=== PATIENT | male | born 1980 | race Caucasian/White ===

== ENCOUNTER 2018-12-06 05:34 | Inpatient (IN) | payer SELFPAY ==
[~2018-12-06] VITALS: Ht 175.3 cm; Wt 78.5 kg
[2018-12-06 05:35] VITALS: BP 130/76
--- NOTE | 2018-12-06 05:40 | NUR ---
PT BIB FAMILY C/O ABD PAIN. PT STATES SUDDEN ONSENT OF RLQ PAIN SINCE LAST NIGHT; PT STATES 10/10 SHARP PAIN W/NAUSEA, VOMITING. PT DENIES TRAUMA OR INJURY. +TENDERNESS TO SITE. PT ACTING APPROPRIATLY, SPEAKING IN CLEAR COMPLETE SENTENCES. PT IN GOWN, IN BED; SAFETY PRECAUTIONS IN PLACE. PENDING ER MD BRIGGS. PMH: DENIES
--- NOTE | 2018-12-06 05:41 | NUR ---
AMBULATED TO ER BED 8
[2018-12-06] MEDS ORDERED: NACL 0.9% 1,000 ML IV ONE (05:56)
[2018-12-06] MEDS ORDERED: ONDANSETRON 4 MG/2 ML VIAL IVP ONE (06:00)
[2018-12-06] MEDS ORDERED: MORPHINE SULFATE 4 MG/ML SYR IVP ONE (06:00)
[2018-12-06 06:22] LABS: BASOPHILS % (AUTO) 0.4 % (0.0-2.0); EOSINOPHILS # (AUTO) 0.1 K/uL (0-0.4); EOSINOPHILS % (AUTO) 1.3 % (0.0-4.0); HEMATOCRIT 48.3 % (36-52); HEMOGLOBIN 16.4 g/dL (12.0-18.0); LYMPHOCYTES % (AUTO) 8.9 % (20.5-51.1); MEAN CORPUSCULAR HEMOGLOBIN 29 pg (27-31); MEAN CORPUSCULAR HGB CONC 34 g/dL (33-37); MEAN CORPUSCULAR VOLUME 85.9 fL (80-94); MONOCYTES # (AUTO) 0.7 K/uL (0.8-1.0); MONOCYTES % (AUTO) 6.1 % (1.7-9.3); NEUTROPHILS # (AUTO) 9.4 K/uL (1.8-7.7); NEUTROPHILS % (AUTO) 83.3 % (42.2-75.2); PLATELET COUNT (AUTO) 181 K/uL (140-450); RED BLOOD CELL COUNT(AUTO) 5.63 MIL/uL (4.20-6.10); RED CELL DISTRIBUTION WIDTH 13.3 % (11.6-13.7); WHITE BLOOD COUNT (AUTO) 11.3 K/uL (4.8-10.8)
[2018-12-06 06:37] LABS: ANION GAP 10.7 (8-16); CARBON DIOXIDE 34.7 mmol/L (21-32); POTASSIUM 3.4 mmol/L (3.5-5.1)
[2018-12-06 06:38] LABS: CREATININE 0.9 mg/dL (0.7-1.3)
[2018-12-06 06:51] LABS: TOTAL BILIRUBIN 1.3 mg/dL (0.0-1.0)
[2018-12-06 06:55] LABS: ALBUMIN 4.3 g/dL (3.4-5.0)
--- NOTE | 2018-12-06 07:11 | NUR ---
Pt report given to ELEAZAR Caruso. VSS; pt acting appropriatly. Transfer of care at this time.
--- NOTE | 2018-12-06 07:12 | NUR ---
PT IS AAO X4. FULL CLEAR SPEECH. NO SIGNS AND SYMPTOMS OF DISTRESS NOTED. ACTING APPROPRIATELY.
[2018-12-06] MEDS: NACL 0.9% 1,000 ML IV SCH ×2 (07:15→17:15)
[2018-12-06] MEDS ORDERED: ACETAMINOPHEN 325 MG TAB PO PRN (07:15)
[2018-12-06] MEDS ORDERED: DOCUSATE SODIUM 100 MG GELCAP PO PRN (07:15)
[2018-12-06] MEDS ORDERED: LORazepam 2 MG/ML VIAL IM/IVP PRN (07:15)
[2018-12-06] MEDS ORDERED: HYDROcodone/APAP 5/325 MG 1 TAB TAB PO PRN (07:15)
[2018-12-06] MEDS ORDERED: ONDANSETRON 4 MG/2 ML VIAL IM/IVP PRN (07:15)
[2018-12-06] MEDS ORDERED: MORPHINE SULFATE 2 MG/ML SYR IVP PRN (07:15)
[2018-12-06] MEDS ORDERED: ZOLPIDEM 5 MG TAB PO PRN (07:15)
[2018-12-06] MEDS ORDERED: LIDOCAINE VISCOUS 2% 20 ML UDC ONE (07:54)
--- NOTE | 2018-12-06 07:56 | NUR ---
NG-TUBE INSERTED ORDERED. AIR BOLUS HEARD UPON AUSCULTATION, VERIFIED BY TWO NURSES. PT TOLERATED PROCEDURE WELL. WILL ORDER X-RAY FOR NG-TUBE PLACEMENT.
[2018-12-06] MEDS ORDERED: LIDOCAINE VISCOUS 2% 20 ML UDC NG SCH (08:00)
--- NOTE | 2018-12-06 08:01 | NUR ---
RADIOLOGY AWARE OF CHEST-XRAY ORDER TO VERIFY NG-TUBE PLACEMENT.
[2018-12-06 08:05] LABS: PROTHROMBIN TIME 10.1 secs (10.8-13.4)
--- NOTE | 2018-12-06 08:05 | NUR ---
URINE SAMPLE OBTAINED, TO BE SENT TO LAB.
--- NOTE | 2018-12-06 08:11 | NUR ---
RADIOLOGY AT BEDSIDE TO VERIFY NG-TUBE PLACEMENT
--- NOTE | 2018-12-06 08:20 | NUR ---
PT ARRIVED ON UNIT VIA GURNEY. PT IS STABLE AND IN NO APPARENT DISTRESS. VITALS TAKEN. IV FLUIDS STARTED AT 100ML/HR PER DR ORDER. IV SITE IS PATENT AND SHOWS NO SIGNS OF INFILTRATION OR INFLAMMATION. WILL CONTINUE TO MONITOR.
--- NOTE | 2018-12-06 08:20 | NUR ---
Patient will be admitted to care of Dr Rod. Admitted to TELE. Will go to room 106 B. Belongings list completed. Report to ELEAZAR Guevara.
[2018-12-06 09:09] LABS: APPEARANCE,URINE HAZY (CLEAR); BILIRUBIN,URINE NEGATIVE (NEGATIVE); BLOOD, URINE NEGATIVE (NEGATIVE); COLOR,URINE YELLOW (YELLOW); LEUKOCYTE ESTERASE ,URINE NEGATIVE (NEGATIVE); NITRITE, URINE NEGATIVE (NEGATIVE); PH,URINE 8.5 (5.0-9.0); UGLUCOSE NEGATIVE (NEGATIVE)
[2018-12-06 09:29] LABS: MAGNESIUM 1.9 mg/dL (1.8-2.4); PHOSPHORUS 2.8 mg/dL (2.5-4.9)
[2018-12-06 09:30] LABS: FREE T4 (FREE THYROXINE) 1.08 ng/dL (0.76-1.46); THYROID STIMULATING HORMONE 0.8 uIU/mL (0.34-3.74)
--- NOTE | 2018-12-06 10:05 | NUR ---
PT IS RESTING QUIETLY IN BED, PT IS STABLE WITH NO SIGNS OF DISTRESS. ALL SAFETY MEASURES ARE IN PLACE. WILL CONTINUE TO MONITOR.
[2018-12-06 10:35] LABS: BARBITURATE, URINE NEGATIVE ng/ml (NEG <=200); BENZODIAZEPINE, URINE NEGATIVE ng/mL (NEG <=200); CANNABINOID, URINE NEGATIVE ng/mL (NEG <=50); COCAINE, URINE NEGATIVE ng/mL (NEG <=300); OPIATE, URINE POSITIVE ng/mL (NEG <=2000); PHENCYCLIDINE SCREEN,URINE NEGATIVE ng/mL (NEG <=25)
[2018-12-06 11:48] LABS: CHOL/HDL RATIO 5.8 (1-4.5)
[2018-12-06] MEDS ORDERED: LEVOFLOXACIN 750 MG/D5W PREMIX 150 ML IV SCH (12:00)
--- NOTE | 2018-12-06 12:10 | NUR ---
FREQUENT ROUNDING ON PT. PT IS STABLE AND IN NO APPARENT DISTRESS. ALL SAFETY MEASURES ARE IN PLACE WILL CONTINUE TO MONITOR.
--- NOTE | 2018-12-06 13:29 | NUR ---
PUSHED CONTRAST THROUGH NG TUBE FOR SMALL BOWEL FOLLOW THROUGH. WITH XRAY TECHS AT BEDSIDE.
--- NOTE | 2018-12-06 13:30 | NUR ---
[facility] GOT ME PT COMPLAINED OF SUDDEN DIAPHORESIS AND LIGHTHEADNESS. CAME TO BED SIDE PT HAD NOTABLE DIAPHORESIS AND BODY RIGIDITY. PTS EYES OPEN BUT UNRESPONSIVE. CALLED [facility] RESPONSE FOR HELP. PT HEART RATE IN LOW 40'S, BUCKRAM SEWER MAMI CAME. VITALS TAKEN 138/74 SPO2 97 HEART RATE 64. PT STILL DIAPHORETIC. PT BEGAN TO STABLIZE WITH NO COMPLAINTS OF PAIN. DR. KHAN AT BEDSIDE. PT STARTED BEGINNING TO RESPOND. DR. VENCES CAME TO PT BEDSIDE WELL. BY THAN THE PT WAS STABLE, RESPONSIVE AND BLOOD PRESSURE WAS 112/ 76 SPO2 97 HEART RATE 68. Addendum: 12/06/18 at 1408 by Paola More RN BLOOD SUGAR WAS TAKEN AND FINGER STICK GLUCOSE WAS 116
--- NOTE | 2018-12-06 13:53 | NUR ---
REVIEWED PTS TELEMONITOR. THERE WAS ABOUT A 7 SECOND ASYSTOLE. BEFORE PT RETURNED TO SINUS RHYTHM.
--- NOTE | 2018-12-06 13:58 | NUR ---
DR. VENCES AWARE OF EKG STRIP FROM [facility]ON[facility] CALL. HE HAS REVIEWED THE STRIP AND WE WILL CONTINUE TO MONITOR THE PT ON TELE.
--- NOTE | 2018-12-06 14:00 | NUR ---
FREQUENT MONITORING ON PT. PT IS STABLE AND AWAKE WITH NO SIGNS OF DISTRESS, ALL SAFETY MEASURES ARE IN PLACE. WILL CONTINUE TO MONITOR.
[2018-12-06] MEDS: metroNIDAZOLE 500 MG/NS PREMIX 100 ML IV SCH ×2 (14:31→20:45)
--- NOTE | 2018-12-06 15:31 | NUR ---
PATIENT HAS BEEN SCREENED AND CATEGORIZED MODERATE NUTRITION RISK. PATIENT WILL BE SEEN WITHIN 3-5 DAYS OF ADMISSION. 12/08/18PRADIP VAZQUEZ RD
[2018-12-06 16:00] VITALS: BP 113/65
--- NOTE | 2018-12-06 16:00 | NUR ---
FAMILY AT PATIENTS BEDSIDE, PT IS AWAKE IN BED PT IS STABLE AND IN NO APPARENT DISTRESS, ALL SAFETY MEASURES ARE IN PLACE. WILL CONTINUE TO MONITOR.
--- NOTE | 2018-12-06 18:05 | NUR ---
FREQUENT ROUNDING ON PT PT IS STABLE AND IN NO APPARENT DISTRESS. ALL SAFETY MEASURES ARE IN PLACE. VITAL SIGNS ARE GOOD, PT IS SINUS RHYTHM ON TELE MONITOR. WILL CONTINUE TO MONITOR.
--- NOTE | 2018-12-06 19:30 | NUR ---
RECEIVED REPORT FROM DAY SHIFT NURSE. PT LYING IN BED. AAOX4. NO C/O PAIN. NO RESP DISTRESS NOTED. ON ROOM AIR. NO C/O NAUSEA OR VOMITING. PT HAS NGT TO RIGHT NARE. IV TO LEFT AC #18G, NS AT 100 ML/HR INFUSING WELL. SAFETY PRECAUTION IN PLACE. CALL LIGHT WITHIN REACH.
--- NOTE | 2018-12-06 19:31 | NUR ---
HAND OFF REPORT GIVEN TO SYSTEMS SPEC NURSE, PT IS AWAKE IN BED, PT IS STABLE AND SHOWS NO SIGNS OF DISTRESS. ALL SAFETY MEASURES ARE IN PLACE.
[2018-12-06 20:00] VITALS: BP 130/76
--- NOTE | 2018-12-06 21:40 | NUR ---
DR. ROSA MADE AWARE OF SMALL BOWEL FOLLOW THROUGH RESULT AND PT'S NGT NOT CONNECTED TO SUCTION. PER MD, NO NEED TO CONNECT TO SUCTION.
--- NOTE | 2018-12-06 21:58 | NUR ---
POTASSIUM LEVEL THIS MORNING 3.4. DR. ROSA MADE AWARE.
--- NOTE | 2018-12-06 22:10 | NUR ---
DISCONTINUED NGT. PT TOLERATED PROCEDURE WELL.DENIES PAIN. NO NAUSEA/VOMITING.
[2018-12-06] MEDS ORDERED: POTASSIUM CHLORIDE 10 MEQ TABER PO SCH (22:30)
[2018-12-07] VITALS: BP 103/55
--- NOTE | 2018-12-07 | NUR ---
V/S CHECKED, WNL. DENIES PAIN. NO RESP DISTRESS NOTED. NEEDS MET AT THIS TIME.
--- NOTE | 2018-12-07 02:40 | NUR ---
PT SLEEPING BUT EASILY AROUSABLE. NO S/S OF PAIN OR DISCOMFORT. RESP EVEN AND UNLABORED. IVF INFUSING WELL.
[2018-12-07] MEDS: NACL 0.9% 1,000 ML IV SCH (02:48)
[2018-12-07 04:00] VITALS: BP 101/54
[2018-12-07] MEDS: metroNIDAZOLE 500 MG/NS PREMIX 100 ML IV SCH (04:45)
--- NOTE | 2018-12-07 05:00 | NUR ---
PT SLEEPING. NO S/S OF RESP DISTRESS NOTED. NO S/S PAIN.
--- NOTE | 2018-12-07 07:15 | NUR ---
ENDORSED PT TO DAY SHIFT NURSE. PT IN STABLE CONDITION.
--- NOTE | 2018-12-07 07:20 | NUR ---
RECEIVED HAND OFF REPORT FROM BUNDLER NURSE PT IS AWAKE AND IN STABLE CONDITION ALL SAFETY MEASURES ARE IN PLACE. WILL CONTINUE TO MONITOR.
[2018-12-07 08:00] VITALS: BP 115/73
--- NOTE | 2018-12-07 08:00 | NUR ---
PT IS STABLE IN BED ALL SAFETY MEASURES ARE IN PLACE PT SHOWS NO SIGNS OF DISTRESS. WILL CONTINUE TO MONITOR,
[2018-12-07 08:02] LABS: BASOPHILS % (AUTO) 0.7 % (0.0-2.0); EOSINOPHILS # (AUTO) 0.1 K/uL (0-0.4); EOSINOPHILS % (AUTO) 2.3 % (0.0-4.0); HEMATOCRIT 43.6 % (36-52); HEMOGLOBIN 14.7 g/dL (12.0-18.0); LYMPHOCYTES # (AUTO) 1.7 K/uL (2.0-11.5); LYMPHOCYTES % (AUTO) 27.5 % (20.5-51.1); MEAN CORPUSCULAR HEMOGLOBIN 30 pg (27-31); MEAN CORPUSCULAR HGB CONC 34 g/dL (33-37); MONOCYTES # (AUTO) 0.5 K/uL (0.8-1.0); MONOCYTES % (AUTO) 7.7 % (1.7-9.3); NEUTROPHILS # (AUTO) 3.9 K/uL (1.8-7.7); NEUTROPHILS % (AUTO) 61.8 % (42.2-75.2); PLATELET COUNT (AUTO) 156 K/uL (140-450); RED BLOOD CELL COUNT(AUTO) 4.95 MIL/uL (4.20-6.10); RED CELL DISTRIBUTION WIDTH 13.2 % (11.6-13.7); WHITE BLOOD COUNT (AUTO) 6.4 K/uL (4.8-10.8)
[2018-12-07 08:28] LABS: CARBON DIOXIDE 28.4 mmol/L (21-32); CREATININE 0.8 mg/dL (0.7-1.3); POTASSIUM 4.4 mmol/L (3.5-5.1)
[2018-12-07 08:39] LABS: MAGNESIUM 1.9 mg/dL (1.8-2.4); PHOSPHORUS 2.3 mg/dL (2.5-4.9)
[2018-12-07] MEDS ORDERED: LACTOBACILLUS RHAMNOSUS GG 1 EACH CAP PO SCH (09:00)
--- NOTE | 2018-12-07 09:00 | NUR ---
FREQUENT ROUNDING PT IS AWAKE IN BED. PT IS STABLE AND IN NO APPARENT DISTRESS ALL SAFETY MEASURES ARE IN PLACE. WILL CONTINUE TO MONITOR.
[2018-12-07] MEDS ORDERED: DOCU-299 PO (09:59)
[2018-12-07 11:00] VITALS: BP 115/73
--- NOTE | 2018-12-07 11:30 | NUR ---
USED [employer] GOVERNMENT PROGRAM MANAGER TO GO OVER DISCHARGE INSTRUCTIONS, EDUCATED PT ON HIGH FIBER DIET. EDUCATED PT ON SIGNS AND SYMPTOMS AND EMERGENCY SERVICES AND COMMUNITY RESOURCES. INFORMED PT OF FOLLOW UP APPOINTMENT THAT WAS SCHEDULED FOR HIM ON November AT 2:30 PM AT [facility] [phone]. INFORMED PATIENT ABOUT THE PRESCRIPTION OF COLACE THAT IS AVAILABLE AT [facility] [address] [place]. REMOVED IV CATH. IV TIP INTACT. ID BAND REMOVED. PT SIGNED ALL FORMS AND HAD NO QUESTIONS. PT IS STABLE AND APPEARS IN NO DISTRESS. Addendum: 12/07/18 at 1325 by Paola More RN PT AMBULATED OUT WITH .
== END 2018-12-07 12:30 | disposition home or self-care (01) | DRG 390 ==
LOC: MED 05:34 → MTU 07:15
PROVIDERS: ADMIT General Practice; ATTEND General Practice
PROC: 0D9670Z Drainage of Stomach with Drainage Device, Via Natural or Artificial Opening (ICD-10-PCS; principal; 2018-12-06)
DX: K56.609 Unspecified intestinal obstruction, unspecified as to partial versus complete obstruction (principal); E78.5 Hyperlipidemia, unspecified; K52.9 Noninfective gastroenteritis and colitis, unspecified
CPT/HCPCS: 36415; 43760; 71045; 74250; 80048; 80053; 80305; 81003; 82150; 82948; 83036; 83690; 83735; 83880; 84100; 84439; 84443; 84484; 85025; 85610; 85730; 86140; 87081; 93005; 96361; 96374; 96375; 99285; J1956; J2270; J2405; J3490; J7030; Q0092